=== PATIENT | male | born 1965 | race Caucasian/White ===

== ENCOUNTER 2017-03-17 12:07 | Observation (INO) | payer BC ==
[2017-03-17] MEDS ORDERED: Sodium Chloride 0.9% 10 ML Syringe FLUSH PRN ×2 (12:17→12:18)
[2017-03-17] MEDS ORDERED: HYDROmorphone 1 MG/ML Syringe IVPUSH ONE (12:20)
[2017-03-17] MEDS ORDERED: diphenhydrAMINE 50 MG/ML SDV IVPUSH ONE (12:20)
[2017-03-17 13:16] LABS: CHLORIDE,CL 104 mmol/L (98-107); SODIUM,NA 141 mmol/L (136-145)
[2017-03-17] MEDS ORDERED: Sodium Chloride 0.9% 1,000 ML IV ONE ×2 (13:49→21:16)
[2017-03-17] MEDS ORDERED: Take Home: Acetaminophen/HYDROcodone 325-10 MG, 5 Tab Pack PO ONE (16:56)
[2017-03-17] MEDS ORDERED: METHYLPREDNISOLONE 4 MG PO SCH (21:45)
[2017-03-17] MEDS: Acetaminophen/HYDROcodone 325-10 MG Tab PO PRN (21:51)
[2017-03-17] MEDS ORDERED: predniSONE 5 MG Tab PO ONE (22:45)
--- NOTE | 2017-03-18 00:13 | ER ---
Date of Service: 03/17/2017 SUBJECTIVE: Michel presents to the emergency room with complaints of low back pain. He has been experiencing this for several days and was seen in the clinic for the same by Dr. Missy Alva. The patient was experiencing extreme discomfort and was subsequently sent to [facility] in [place] via private vehicle where he underwent an MRI of his lumbar spine. He had no evidence of any disc herniation or other pathology on the MRI. He subsequently followed up with Missy Skaggs the next day. This being last Saturday and the patient was started on Flexeril and Medrol Dosepak. The patient states that the discomfort has not been improving. He states that he has had difficulties with voiding due to increased discomfort when standing. He states that he has not been experiencing any fever or chills. He denies any saddle anesthesia, urinary or fecal incontinence, or other signs of cauda equina syndrome. PAST MEDICAL HISTORY: None. MEDICATIONS: 1. Medrol Dosepak. 2. Flexeril 5 mg p.o. t.i.d. 3. Multivitamin. 4. MyoCalm, which is a calcium magnesium passion flower valerian root supplement. ALLERGIES: Aspirin. REVIEW OF SYSTEMS: General: Denies any fever or chills. HEENT: No sore throat, rhinorrhea, congestion. Respiratory: No shortness of breath. Cardiac: Denies any substernal chest pain. No jaw, arm, neck, or back pain. GI: No nausea, vomiting, or diarrhea. No melena, hematochezia, or hematemesis. : Denies any dysuria. Musculoskeletal: No myalgias or arthralgias. Neurologic: No fainting, blackouts, lightheadedness. PHYSICAL EXAMINATION: General: This is a 51-year-old male patient, who is in severe amount of distress. Vital Signs: Blood pressure is 128/76, heart rate 62, respiratory rate is 14, O2 saturations 98%. Skin: Warm, pink, and dry. HEENT. Head is normocephalic, atraumatic. Lungs: Clear to auscultation. Heart: Regular rate and rhythm. Abdomen: Soft, nontender. There is no hepatosplenomegaly or masses noted. Extremities: Without edema. He does have 3+ reflexes in his lower extremities. He does have some muscle spasm to the paraspinal muscles of the lumbar spine. NEUROVASCULAR: Circulation, sensation, and motor function are all within normal limits in distal portion of his lower extremities. LABORATORY DATA: WBCs 9.0, hemoglobin is 14.6, platelets are 193. Coags; PT is 10.5, INR is 1.0, sodium is 141, potassium is 3.6, chloride is 104, bicarb is 20, BUN is 22, creatinine is 1.2. GFR is greater than 60. Glucose is 122, lactic acid is 3.6, calcium is 9.2, corrected calcium is 9.04, total bilirubin is 0.9. AST is 20, ALT is 24, alkaline phosphatase is 58. C-reactive protein is less than 0.2, total protein is 7.4. TSH is 1.203. Urinalysis was obtained. Specific gravity is 1.015, pH was 6.5, negative for protein and glucose. He did have 15 ketones, negative occult blood, nitrites, bilirubin and leukocyte esterase. Urine toxicology was positive for tricyclics and benzodiazepines, however, he did receive Valium in the emergency room before he gave his urine sample. EMERGENCY ROOM COURSE: IV access was established. He was given 1 mg of Dilaudid and 0.5 mg of Valium for his severe pain. He was also given 50 mg of Benadryl. He did report minimal improvement in his discomfort, but at one point, he did desaturate with his oxygen saturation in the mid 60s, which came up on supplemental oxygen. Following this event, he was maintaining oxygen saturations in the high to mid 90s and still complaining of low back pain. He did, however, at the time of discharge state that his pain was down to approximately 4. ASSESSMENT: Acute low back pain. PLAN: I did discuss the findings with the patient. Decision was made to discharge the patient. I did start him on [place] 10/325 with instructions to take 1 every 4-6 hours as needed for pain. I would like him to follow up with his primary care provider next week for a recheck. Return to the emergency room if he develops any worsening back discomfort, fever, chills, or other worrisome signs or symptoms. All questions were answered. MWK: 03/17/2017 23:35:03 MODL: 03/18/2017 00:06:08 /[id number]
[2017-03-18] MEDS: Acetaminophen/HYDROcodone 325-10 MG Tab PO PRN ×3 (05:40→19:48)
[2017-03-18] MEDS ORDERED: predniSONE 5 MG Tab PO SCH (08:00)
--- NOTE | 2017-03-18 08:18 | PCM.PN ---
- General Info Date of Service: 03/18/17 Pain Score: 10 - Review of Systems General: Reports: No Symptoms HEENT: Reports: No Symptoms Pulmonary: Reports: No Symptoms Cardiovascular: Reports: No Symptoms Gastrointestinal: Reports: No Symptoms Musculoskeletal: Reports: Back Pain (states he had a good night and thought his back was better but sat up this morning to eat breakfast and now the back pain is severe. ) Skin: Reports: No Symptoms - Patient Data Vitals - Most Recent: Last Vital Signs Temp 37.1 C 03/18/17 05:58 Pulse 62 03/18/17 05:58 Resp 16 03/18/17 05:58 BP 141/79 H 03/18/17 05:58 Pulse Ox 98 03/18/17 05:58 Weight - Most Recent: 90.718 kg I&O - Last 24 Hours: Intake & Output 03/17/17 03/18/17 03/18/17 22:59 06:59 14:59 Intake Total 1566 1340 Output Total 725 500 Balance 841 840 Med Orders - Current: Current Medications Hydrocodone Bitart/Acetaminophen ([place] 325-10 Mg) 1 tab PO Q4H PRN PRN Reason: Pain Last Admin: 03/18/17 05:40 Dose: 1 tab Prednisone (Prednisone) 10 mg PO DAILY MATHIEU Stop: 03/19/17 08:01 Prednisone (Prednisone) 5 mg PO DAILY MATHIEU Stop: 03/20/17 08:01 Sodium Chloride (Saline Flush) 10 ml FLUSH ASDIRECTED PRN PRN Reason: Keep Vein Open Sodium Chloride (Saline Flush) 10 ml FLUSH ASDIRECTED PRN PRN Reason: Keep Vein Open Discontinued Medications Hydrocodone Bitart/Acetaminophen (Take Home: Acetaminophen/Hydrocodone 325-10mg ) 1 packet PO ONETIME ONE Stop: 03/17/17 16:57 Last Admin: 03/17/17 17:11 Dose: 1 packet Diazepam (Valium) 5 mg IVPUSH ONETIME ONE Stop: 03/17/17 12:21 Last Admin: 03/17/17 12:33 Dose: 5 mg Diphenhydramine HCl (Benadryl) 50 mg IVPUSH ONETIME ONE Stop: 03/17/17 12:21 Last Admin: 03/17/17 12:31 Dose: 50 mg Hydromorphone HCl (Dilaudid) 1 mg IVPUSH ONETIME ONE Stop: 03/17/17 12:21 Last Admin: 03/17/17 12:35 Dose: 1 mg Sodium Chloride (Normal Saline) 1,000 mls @ 1,000 mls/hr IV .BOLUS ONE Stop: 03/17/17 14:48 Last Admin: 03/17/17 13:53 Dose: 1,000 mls/hr Sodium Chloride (Normal Saline) 1,000 mls @ 100 mls/hr IV ONETIME ONE Stop: 03/18/17 07:15 Last Admin: 03/17/17 21:51 Dose: 100 mls/hr Non-Formulary Medication (Methylprednisolone [Ijd: Methylprednisolone]) 4 mg PO ASDIRECTED MATHIEU Prednisone (Prednisone) 5 mg PO ONETIME ONE Stop: 03/17/17 22:46 Last Admin: 03/17/17 22:59 Dose: 5 mg Prednisone (Prednisone) 15 mg PO DAILY MATHIEU Stop: 03/18/17 08:01 Last Admin: 03/18/17 07:32 Dose: 15 mg - Exam General: Alert, Oriented, Cooperative Lungs: Clear to Auscultation, Normal Respiratory Effort Cardiovascular: Regular Rate, Regular Rhythm GI/Abdominal Exam: Normal Bowel Sounds, Soft, Non-Tender Back Exam: Normal Inspection, Decreased Range of Motion (due to pain) Extremities: Normal Inspection - Problem List & Annotations (1) Back pain SNOMED Code(s): 010634102 Code(s): M54.9 - DORSALGIA, UNSPECIFIED Status: Acute Current Visit: Yes Qualifiers: Back pain location: low back pain Chronicity: acute Back pain laterality : midline Annotation/Comment:: no changes in plan of care. will see how he does with physicial therapy today. - Problem List Review Problem List Initiated/Reviewed/Updated: Yes
[2017-03-18] MEDS ORDERED: Menthol/Methyl Salicylate 85 GM Tube TOP PRN (10:44)
[2017-03-18] MEDS: Cyclobenzaprine 10 MG Tab PO SCH ×2 (12:38→19:46)
[2017-03-19 05:45] VITALS: BP 105/71
[2017-03-19] MEDS: Cyclobenzaprine 10 MG Tab PO SCH ×3 (07:19→09:18)
[2017-03-19] MEDS ORDERED: predniSONE 5 MG Tab PO SCH (08:00)
--- NOTE | 2017-03-19 09:52 | PCM.DCSUM1 ---
Discharge Summary - Hospital Course Free Text/Narrative:: Patient admitted for intractable back pain on Saturday by Kris Henry. Pain has improved, but still is persisting. Did have an MRI of the lower back that did not show any acute causes. It did show some mild degenerative changes in the lumbar spine. He is asking to go home today. He thought the traction from PT yesterday was helpful. HPI Initial Comments: Patient seen and treated by Dr. Alva on Saturday03/15/17 for acute back pain. This did not improve and he was seen and admitted for back pain on 03/17 by Kris Henry. Pain has been improving. He is requesting to be discharged today. - Discharge Data Discharge Date: 03/19/17 Discharge Disposition: Home, Self-Care 01 Condition: Good - Patient Summary/Data Consults: Consultations 03/17/17 21:27 PT Evaluation and Treatment [CONS] Routine 03/17/17 21:28 OT Evaluation and Treatment [CONS] Routine - Patient Instructions Diet: Heart Healthy Diet Activity: As Tolerated, No Lifting Over 10 Pounds Activity, Other: You need to be up and moving this will improve your pain. Driving, Other: Do not drive while taking pain meds and muscle relaxants Other/Special Instructions: Follow up with Dr. Alva regarding your MRI results. Perhaps you need MRI with contrast for a better view. Reduce your Flexeril to 5 mg once daily. You can cut in half your current prescription. - Discharge Plan Prescriptions/Med Rec: Acetaminophen/HYDROcodone [[place] 325-10 MG] 1 tab PO Q4H PRN #20 tablet PRN Reason: Pain Home Medications: Home Meds [place]em [place]/Mag Cit/Pass Flw/Valer [Myocalm] 1 each PO ASDIRECTED 03/17/17 [History] Cyclobenzaprine [Flexeril] 5 mg PO TID 03/17/17 [History] Methylprednisolone [IJD: Methylprednisolone] 4 mg PO ASDIRECTED 03/17/17 [ History] Multivitamin [Men's Multi-Vitamin] 1 each PO DAILY 03/17/17 [History] Acetaminophen/HYDROcodone [[place] 325-10 MG] 1 tab PO Q4H PRN #20 tablet [Rx] Docusate Sodium/Sennosides [Senna Plus] 1 tab PO DAILY tablet 03/19/17 [Rx] Menthol/Methyl Salicylate [Icy Hot Cream] 0 gm TOP QID PRN #0 tube 03/19/17 [Rx] Patient Handouts: Back Pain, Adult, Back Exercises Forms: ED Department Discharge Referrals: PCP,None [Primary Care Provider] - - General Info Date of Service: 03/19/17 Admission Dx/Problem (Free Text: Low back pain Functional Status: Reports: Tolerating Diet, Ambulating Numeric/FACES Score: 6 - Review of Systems General: Reports: No Symptoms HEENT: Reports: No Symptoms Pulmonary: Reports: No Symptoms Cardiovascular: Reports: No Symptoms Gastrointestinal: Reports: No Symptoms Genitourinary: Reports: No Symptoms Musculoskeletal: Reports: Back Pain Skin: Reports: No Symptoms Neurological: Reports: No Symptoms Psychiatric: Reports: No Symptoms - Patient Data Vitals - Most Recent: Last Vital Signs Temp 36.9 C 03/19/17 05:45 Pulse 71 03/19/17 05:45 Resp 12 03/19/17 05:45 BP 105/71 03/19/17 05:45 Pulse Ox 97 03/19/17 05:45 Weight - Most Recent: 90.718 kg I&O - Last 24 hours: Intake & Output 03/18/17 03/19/17 03/19/17 22:59 06:59 14:59 Intake Total 740 360 Output Total 400 Balance 740 -400 360 Med Orders - Current: Current Medications Hydrocodone Bitart/Acetaminophen ([place] 325-10 Mg) 1 tab PO Q4H PRN PRN Reason: Pain Last Admin: 03/18/17 19:48 Dose: 1 tab Cyclobenzaprine HCl (Flexeril) 5 mg PO TID [facility] Last Admin: 03/19/17 09:18 Dose: 5 mg Methyl Salicylate (Icy Hot Cream) 0 gm TOP QID PRN PRN Reason: Pain Last Admin: 03/18/17 11:08 Dose: 1 applic Prednisone (Prednisone) 5 mg PO DAILY [facility] Stop: 03/20/17 08:01 Senna/Docusate Sodium (Senna Plus) 1 tab PO DAILY [facility] Last Admin: 03/19/17 07:19 Dose: 1 tab Sodium Chloride (Saline Flush) 10 ml FLUSH ASDIRECTED PRN PRN Reason: Keep Vein Open Discontinued Medications Hydrocodone Bitart/Acetaminophen (Take Home: Acetaminophen/Hydrocodone 325-10mg ) 1 packet PO ONETIME ONE Stop: 03/17/17 16:57 Last Admin: 03/17/17 17:11 Dose: 1 packet Diazepam (Valium) 5 mg IVPUSH ONETIME ONE Stop: 03/17/17 12:21 Last Admin: 03/17/17 12:33 Dose: 5 mg Diphenhydramine HCl (Benadryl) 50 mg IVPUSH ONETIME ONE Stop: 03/17/17 12:21 Last Admin: 03/17/17 12:31 Dose: 50 mg Hydromorphone HCl (Dilaudid) 1 mg IVPUSH ONETIME ONE Stop: 03/17/17 12:21 Last Admin: 03/17/17 12:35 Dose: 1 mg Sodium Chloride (Normal Saline) 1,000 mls @ 1,000 mls/hr IV .BOLUS ONE Stop: 03/17/17 14:48 Last Admin: 03/17/17 13:53 Dose: 1,000 mls/hr Sodium Chloride (Normal Saline) 1,000 mls @ 100 mls/hr IV ONETIME ONE Stop: 03/18/17 07:15 Last Admin: 03/17/17 21:51 Dose: 100 mls/hr Non-Formulary Medication (Methylprednisolone [Ijd: Methylprednisolone]) 4 mg PO ASDIRECTED [facility] Prednisone (Prednisone) 5 mg PO ONETIME ONE Stop: 03/17/17 22:46 Last Admin: 03/17/17 22:59 Dose: 5 mg Prednisone (Prednisone) 15 mg PO DAILY [facility] Stop: 03/18/17 08:01 Last Admin: 03/18/17 07:32 Dose: 15 mg Prednisone (Prednisone) 10 mg PO DAILY [facility] Stop: 03/19/17 08:01 Last Admin: 03/19/17 07:19 Dose: 10 mg Senna/Docusate Sodium (Senna Plus) 1 tab PO DAILY MATHIEU - Exam General: Reports: Alert, Oriented, Cooperative, Mild Distress HEENT: Reports: Pupils Equal, Pupils Reactive Neck: Reports: Supple Lungs: Reports: Clear to Auscultation, Normal Respiratory Effort Cardiovascular: Reports: Regular Rate, Regular Rhythm GI/Abdominal Exam: Normal Bowel Sounds, Soft, Non-Tender, No Organomegaly Back Exam: Reports: Decreased Range of Motion (due to pain) Extremities: Normal Inspection, Normal Range of Motion, Non-Tender, No Pedal Edema, Normal Capillary Refill Skin: Reports: Warm, Dry, Intact Neurological: Reports: No New Focal Deficit Psy/Mental Status: Reports: Alert, Normal Affect, Normal Mood *Q Meaningful Use (DIS) - VTE *Q VTE Criteria *Q: - Stroke *Q Stroke Criteria *Q: - AMI *Q AMI Criteria *Q:
[2017-03-20] MEDS ORDERED: predniSONE 5 MG Tab PO SCH (08:00)
== END 2017-03-19 11:27 | disposition home or self-care (01) ==
LOC: VM.ED 12:07 → VM.MS 19:58
PROVIDERS: ADMIT Physician Assistant; ATTEND Physician Assistant
DX: M54.5 Low back pain (principal); R55 Syncope and collapse
CPT/HCPCS: 36415; 71010; 80053; 80299; 80305; 81001; 82550; 82553; 83605; 83735; 84443; 84484; 85025; 85610; 86140; 87040; 93005; 96361; 96374; 96375; 97012; 97161; 97165; 97530; 97535; 99283; 99285; A9270; G0480; J1170; J1200; J3360; J7030; G0378